=== PATIENT | female | born 1950 | race Caucasian/White ===

== ENCOUNTER 2023-10-11 18:25 | Emergency (ER) | payer MEDICARE ==
[2023-10-11] MEDS ORDERED: Lidocaine 1% w/Epinephrine 1:100K 20 ML VIAL ONE (18:43)
[2023-10-11] MEDS ORDERED: Bacitracin 1 PK ONE (19:12)
[2023-10-11] MEDS ORDERED: Boostrix 0.5 ML (Tdap) VIAL (>/=7 yrs of age) ONE (19:13)
== END 2023-10-11 19:35 | disposition home or self-care (01) ==
LOC: NAV ERS 18:25
DX: S01.01XA Laceration without foreign body of scalp, initial encounter (principal); W01.0XXA Fall on same level from slipping, tripping and stumbling without subsequent striking against object, initial encounter; Z23 Encounter for immunization
CPT/HCPCS: 12002; 90471; 90715